=== PATIENT | female | born 1980 | race Caucasian/White ===

== ENCOUNTER 2019-10-19 18:00 | Emergency (ER) | payer BC ==
[~2019-10-19] VITALS: Ht 160 cm; Wt 120.0 kg
[~2019-10-19 18:00] MED LIST: AMOXICILLIN 50500 MG PO; LEVAQUIN 750MG750 M1 PO; NO HOME MEDICATIONS; NORCO 325 MG-51 TAB PO; PEN-VEE K500 MG PO; TAMIFLU 75MG75 MG PO; TYLENOL #3 301 UDTAB PO; ULTRAM 50MG TAB50 MG PO
[2019-10-19] MEDS ORDERED: CLEOCIN HCL300 MG PO (18:19)
[2019-10-19] MEDS ORDERED: NORCO 325 MG-51 TAB PO (18:19)
[2019-10-19 18:52] VITALS: BP 141/76; PULSE 99; TEMP 98.4
== END 2019-10-19 18:53 | disposition home or self-care (01) ==
LOC: COL.ER
DX: K02.9 Dental caries, unspecified (principal)

== ENCOUNTER 2020-04-01 14:48 | Outpatient (RCR) | payer OTHER ==
[~2020-04-01 14:48] MED LIST changes: +CLEOCIN HCL300 MG PO
== END 2020-04-27 | disposition home or self-care (01) ==
LOC: WSOH
DX: S83.502A Sprain of unspecified cruciate ligament of left knee, initial encounter (principal); E66.01 Morbid (severe) obesity due to excess calories; Z90.89 Acquired absence of other organs; Y99.0 Civilian activity done for income or pay

== ENCOUNTER 2021-09-27 06:10 | Emergency (ER) | payer BC ==
[~2021-09-27] VITALS: Ht 160 cm; Wt 92.7 kg
[2021-09-27 06:17] VITALS: BP 144/87; TEMP 98.3
[2021-09-27 07:04] VITALS: PULSE 80
== END 2021-09-27 07:05 | disposition home or self-care (01) ==
LOC: COL.ER 06:10
DX: R05.9 Cough, unspecified (principal)

== ENCOUNTER 2022-01-14 01:33 | Emergency (ER) | payer BC ==
[~2022-01-14] VITALS: Ht 160 cm; Wt 88.6 kg
[2022-01-14 01:47] VITALS: TEMP 98.4
[2022-01-14 03:31] LABS: COLLECTION METHOD CLEAN CATCH
[2022-01-14 03:33] LABS: BASO # 0.1 K/mm3 (0.0-0.2); BASO % 0.9 % (0.0-2.0); EOS # 0.2 K/mm3 (0.0-0.7); EOS % 2.4 % (0.0-4.0); GRAN # 5.5 K/mm3 (1.4-6.5); GRAN % 74.4 % (42.2-75.2); LYMPH % 13.8 % (20.0-51.0); MEAN CELL VOLUME 59 fl (80.0-100.0); MEAN CORPUSCULAR HGB CONC 25 g/dl (33.0-37.0); MONO # 0.6 K/mm3 (0.1-0.6); MONO % 8.1 % (1.7-9.3); PLATELET COUNT 250 K/mm3 (130-400); RED BLOOD COUNT 4.43 M/mm3 (4.10-5.30); REDCELL DISTRIBUTION WIDTH-CV 22.1 % (11.5-14.5)
[2022-01-14 03:38] LABS: HEMOGLOBIN 6.6 g/dl (12.5-16.0); MEAN CORPUSCULAR HEMOGLOBIN 15 pg (27-31)
[2022-01-14 03:42] LABS: MUCOUS Present (NOT PRESENT); SQUAMOUS EPITHELIAL 20-50 /hpf (0-10); URINE BACTERIA Rare /hpf (NONE SEEN); URINE CALCIUM OXALATE CRYSTAL Present (NOT PRESENT)
[2022-01-14 03:43] LABS: URINE APPEARANCE Cloudy (CLEAR/HAZY); URINE COLOR Yellow (YELLOW); URINE GLUCOSE Negative (NEGATIVE); URINE KETONE TRACE (NEGATIVE); URINE PROTEIN(semi-quant) 1+ (NEGATIVE)
[2022-01-14 03:44] LABS: URINE BLOOD Negative (NEGATIVE); URINE NITRATE Negative (NEGATIVE); URINE UROBILINOGEN 0.2 E.U/dL (0.2-1.0)
[2022-01-14 03:57] LABS: ALBUMIN 3.7 gm/dL (3.5-5.0); BILIRUBIN,TOTAL 0.4 mg/dL (0.2-1.2); CREATININE, serum 0.69 mg/dL (0.57-1.11); POTASSIUM 3.3 mmol/L (3.5-4.5); TOTAL PROTEIN 6.9 gm/dL (6.2-8.1)
[2022-01-14] MEDS ORDERED: FERROUSGLUC256MG PO (04:06)
[2022-01-14 04:24] VITALS: BP 140/78; PULSE 76
== END 2022-01-14 04:24 | disposition home or self-care (01) ==
LOC: COL.ER 01:33
PROVIDERS: Family Medicine
DX: D50.9 Iron deficiency anemia, unspecified (principal); Z28.310 Unvaccinated for COVID-19; Z20.822 Contact with and (suspected) exposure to COVID-19

== ENCOUNTER 2022-01-15 12:59 | Emergency (ER) | payer BC ==
[2022-01-15] VITALS (8 sets, daily range): BP systolic 124–143; BP diastolic 74–96; PULSE 75–90; TEMP 98.4–98.5
[~2022-01-15] VITALS: Ht 160 cm; Wt 88.6 kg
[~2022-01-15 12:59] MED LIST changes: +FERROUSGLUC256MG PO
[2022-01-15 13:59] LABS: BASO % 0.5 % (0.0-2.0); EOS # 0.1 K/mm3 (0.0-0.7); EOS % 0.9 % (0.0-4.0); GRAN % 78.1 % (42.2-75.2); LYMPH % 12.5 % (20.0-51.0); MEAN CELL VOLUME 59 fl (80.0-100.0); MEAN CORPUSCULAR HGB CONC 26 g/dl (33.0-37.0); MONO # 0.6 K/mm3 (0.1-0.6); MONO % 7.6 % (1.7-9.3); PLATELET COUNT 265 K/mm3 (130-400); RED BLOOD COUNT 4.52 M/mm3 (4.10-5.30); REDCELL DISTRIBUTION WIDTH-CV 22.5 % (11.5-14.5)
[2022-01-15 14:06] LABS: HEMATOCRIT 26.8 % (37.0-47.0); HEMOGLOBIN 6.9 g/dl (12.5-16.0); MEAN CORPUSCULAR HEMOGLOBIN 15 pg (27-31)
== END 2022-01-15 18:50 | disposition home or self-care (01) ==
LOC: COL.ER 12:59
PROVIDERS: Emergency Medicine
DX: D64.9 Anemia, unspecified (principal)
CPT/HCPCS: C9113; P9016